=== PATIENT | male | born 1965 | race Caucasian/White ===

== ENCOUNTER → 2017-08-24 20:26 | Emergency (ER) | payer OTHER ==
[~2017-08-24] VITALS: Ht 180.3 cm; Wt 129.3 kg
[~2017-08-24 20:26] MED LIST: FAMO-63 PO; IPRATRPIUM/ALBUTEROL 0.5/2.5MG 3 ML NEBU. NEB ONE; LIDO:MAALOX 1:1 20 ML SINGLE DOSE PO ONE
--- NOTE | 2017-08-24 20:43 | PHYS DOC ---
Past History Past Medical History: No Pertinent History Past Surgical History: No Surgical History Smoking: Non-smoker Adult General Chief Complaint Chief Complaint: SWALLOWED FORIEGN BODY HPI HPI Patient is a 51 year old male who presents with " I think a peanut got stuck." He was eating a peanut about an hour and half ago and he swallowed it and he states it felt like it "got stuck in my throat." He did have some coughing initially that has resolved. His no difficulty breathing. No drooling. No wheezing. Review of Systems Review of Systems Constitutional: Denies fever or chills Eyes: Denies change in visual acuity, redness, or eye pain HENT: Denies nasal congestion. POS irritated throat. Respiratory: POS cough but no shortness of breath Cardiovascular: No chest pain GI: Denies abdominal pain, nausea, vomiting, bloody stools or diarrhea : Denies dysuria or hematuria Musculoskeletal: Denies back pain or joint pain Integument: Denies rash or skin lesions Neurologic: Denies headache, focal weakness or sensory changes Current Medications Current Medications Current Medications Medications (Trade) Dose Ordered Sig/Marianna Start Time Stop Time Status Last Admin Dose Admin Multi-Ingredient Mouthwash/Gargle (Gi Cocktail) 20 ml 1X ONCE 08/24/17 20:45 08/24/17 20:46 UNV Physical Exam Physical Exam Constitutional: Well developed, well nourished, no acute distress, non-toxic appearance. HENT: Normocephalic, atraumatic, bilateral external ears normal, oropharynx moist, no oral exudates, nose normal. No uvula edema, no tongue swelling. No facial swelling. No drooling. Handling secretions well. Eyes: PERRLA, EOMI, conjunctiva normal, no discharge. Neck: Normal range of motion, no tenderness, supple, no stridor. Cardiovascular:Heart rate regular rhythm, no murmur Lungs & Thorax: Bilateral breath sounds clear to auscultation. No wheezing. Abdomen: Bowel sounds normal, soft, no tenderness, no masses, no pulsatile masses. Skin: Warm, dry, no erythema, no rash. Back: No tenderness, no CVA tenderness. Extremities: No tenderness, no cyanosis, no clubbing, ROM intact, no edema. Neurologic: Alert and oriented X 3, normal motor function, normal sensory function, no focal deficits noted. Psychologic: Affect normal, judgement normal, mood normal. Current Patient Data Vital Signs Vital Signs Date Time Temp Pulse Resp B/P (MAP) Pulse Ox O2 Delivery O2 Flow Rate FiO2 08/24/17 20:26 98.5 65 22 97 Room Air Course & Med Decision Making Course & Med Decision Making Patient with no evidence of airway or esophageal obstruction. Duoneb dosed here. GI cocktail given. Patient is probably feeling a "scratch" from the peanut in the throat. If symptoms persist needs f/u with GI and pulmonary. Will place on pepcid. I have spoken with the patient and/or caregivers. I have explained the patient' s condition, diagnosis and treatment plan based on the information available to me at this time. I have answered the patient's and/or caregiver's questions and addressed any concerns. The patient and/or caregivers have as good an understanding of the patient's diagnosis, condition and treatment plan as can be expected at this point. The patient's condition is stable and appropriate for discharge from the emergency department. The patient will pursue further outpatient evaluation with the primary care physician or other designated or consulting physician as outlined in the discharge instructions. The patient and/or caregivers are agreeable to this plan of care and follow-up instructions have been explained in detail. The patient and/or caregivers have received these instructions in written format and have expressed an understanding of the discharge instructions. The patient and/or caregivers are aware that any significant change in condition or worsening of symptoms should prompt an immediate return to this or the closest emergency department or a call to 911. Dragon Disclaimer Dragon Disclaimer This chart was dictated in whole or in part using Voice Recognition software in a busy, high-work load, and often noisy Emergency Department environment. It may contain unintended and wholly unrecognized errors or omissions. Departure Departure: Impression: Primary Impression: Unspecified foreign body in esophagus causing other injury, initial encounter Disposition: 01 HOME, SELF-CARE Referrals: AKSHAT LAWS (PCP) Additional Instructions: There is no evidence of respiratory or lung compromise or that the peanut is stuck in your esophagus. Start the pepcid daily. If your symptoms persist you will need evaluation by a GI doctor. Scripts Famotidine (PEPCID) 20 Mg Tablet 1 TAB PO BID, #30 TAB 3 Refills Prov: STEFANY SYKES MD 08/24/17 STEFANY SYKES MD Aug 24, 2017 20:43
[2017-08-24 21:21] VITALS: BP 115/72
== END | disposition home or self-care (01) ==
LOC: ER 20:26
DX: T18.128A Food in esophagus causing other injury, initial encounter (principal); X58.XXXA Exposure to other specified factors, initial encounter; Y93.89 Activity, other specified; Y99.8 Other external cause status; Y92.89 Other specified places as the place of occurrence of the external cause
CPT/HCPCS: 94640; 99283; J7620

== ENCOUNTER 2019-01-23 19:39 | Emergency (ER) | payer OTHER ==
[~2019-01-23] VITALS: Ht 180.3 cm; Wt 122.9 kg
[~2019-01-23 19:39] MED LIST changes: -IPRATRPIUM/ALBUTEROL 0.5/2.5MG 3 ML NEBU. NEB ONE; -LIDO:MAALOX 1:1 20 ML SINGLE DOSE PO ONE
[2019-01-23 19:43] VITALS: BP 151/77
--- NOTE | 2019-01-23 19:55 | PHYS DOC ---
Past History Past Medical History: No Pertinent History Past Surgical History: No Surgical History Smoking: Non-smoker Alcohol Use: None Drug Use: None Adult General Chief Complaint Chief Complaint: ANKLE PROBLEM HPI HPI Patient is a 53-year-old male who presents with complaint of left ankle pain after twisting his ankle earlier today from slipping on ice. Patient states that he has been able to bear weight but states that it has been painful. He states that the majority of the pain is at the mid ankle anteriorly as well as the lateral aspect of the ankle. He rates pain as moderate. He denies any other injuries. Review of Systems Review of Systems Constitutional: Denies fever or chills [] Respiratory: Denies cough or shortness of breath [] Cardiovascular: No additional information not addressed in HPI [] Musculoskeletal: Positive left ankle pain [] Allergies Allergies Allergies Coded Allergies Type Severity Reaction Last Updated Verified No Known Drug Allergies 08/24/17 No Physical Exam Physical Exam Constitutional: Well developed, well nourished, no acute distress, non-toxic appearance. [] Cardiovascular: Regular rate and rhythm[] Lungs & Thorax: Bilateral breath sounds clear to auscultation [] Extremities: Examination of left ankle demonstrates mild soft tissue swelling. There is tenderness to palpation just proximal to the lateral malleolus and then distal to lateral malleolus in the area of calcaneofibular and posterior talofibular ligament. [] EKG EKG [] Radiology/Procedures Radiology/Procedures [] Impressions: There is an area of lucency in the anterior aspect of the lateral malleolus that is only noted on the lateral image of the ankle. It is not depicted on AP or oblique images. I do not feel that this reflects a fracture. Course & Med Decision Making Course & Med Decision Making Pertinent Labs and Imaging studies reviewed. (See chart for details) Findings of x-ray were reviewed with patient and family. Patient placed in an air stirrup splint and provided with crutches with crutch training. Dragon Disclaimer Dragon Disclaimer This electronic medical record was generated, in whole or in part, using a voice recognition dictation system. Departure Departure: Impression: Primary Impression: Left ankle sprain Disposition: HOME, SELF-CARE Condition: STABLE Referrals: AKSHAT LAWS MD (PCP) Patient Instructions: Ankle Sprain Scripts Diclofenac Sodium (DICLOFENAC SODIUM) 50 Mg Tablet.dr 1 TAB PO BID PRN for PAIN, #20 TAB Prov: ALMA ERWIN Jr. DO 01/23/19 Problem Qualifiers Primary Impression: Left ankle sprain Encounter type: initial encounter Involved ligament of ankle: unspecified ligament Qualified Codes: S93.402A - Sprain of unspecified ligament of left ankle, initial encounter ALMA ERWIN Jr. DO Jan 23, 2019 19:55
[2019-01-23] MEDS ORDERED: DICL50TA4 PO (21:06)
--- NOTE | 2019-01-24 08:11 | RAD ---
ANKLE LEFT 3V History: Left ankle injury, pain and swelling Comparison: None. Findings: 3 views of the left ankle are submitted. No acute fracture or dislocation is identified by radiographs. Tibiotalar joint space is maintained. There are dorsal and plantar calcaneal enthesophytes. There is degenerative change of the talus near the talonavicular joint. Impression: 1. No acute fracture is identified by radiographs. Electronically signed by: Shawn Graves MD (01/24/2019 8:08 AM) [id number]
== END 2019-01-23 21:30 | disposition home or self-care (01) ==
LOC: ER 19:39
DX: S93.402A Sprain of unspecified ligament of left ankle, initial encounter (principal); W00.0XXA Fall on same level due to ice and snow, initial encounter; Y93.89 Activity, other specified; Y92.89 Other specified places as the place of occurrence of the external cause; Y99.8 Other external cause status
CPT/HCPCS: 29515; 73610; 99283